=== PATIENT | male | born 1965 | race Two or more races ===

== ENCOUNTER 2024-07-16 14:44 | Emergency (ER) | payer SELFPAY ==
[2024-07-16 14:48] VITALS: BP 158/93; PULSE 95; TEMP 36.7; O2SAT 96; BMI 24.3
--- NOTE | 2024-07-16 14:58 | ED.GENADUL1 ---
HPI HPI - General Adult General Chief complaint: Extremity Injury, Lower Stated complaint: PAIN IN R LEG Time Seen by Provider: 07/16/24 14:55 Source: patient Mode of arrival: walk-in Limitations: no limitations History of Present Illness HPI narrative: 58-year-old male presents for pain in his right ischial tuberosity. It has been hurting for 2 weeks since he fell and landed on this area. No other injury was sustained. He points only to the ischial tuberosity to indicate the area of pain. There is no pain at the greater trochanter area or on the left side. Related Data Previous Rx's ?Medication ?Instructions ?Recorded acetaminophen 300 mg-codeine 30 mg 1 tab PO Q6H PRN pain 5 days #20 07/16/24 tablet tabs ibuprofen 800 mg tablet 800 mg PO Q8H PRN pain #20 tabs 07/16/24 Allergies Allergy/AdvReac Type Severity Reaction Status Date / Time No Known Drug Allergies Allergy Verified 07/16/24 14:48 Opioid HPI Opioid Management Most Recent Opioid Data: No Data to Display Review of Systems ROS Narrative A ten point review of systems is negative except as noted above. PFSH PFSH Social History Little interest or pleasure in doing things: not at all Feeling down, depressed, or hopeless: not at all Exam Narrative Exam Narrative: Nurses note and vital signs reviewed and patient is not hypoxic. General: The patient appears well and in no apparent distress. Patient is resting comfortably on cart. Skin: Warm, dry, no pallor noted. There is no rash noted. Head: Normocephalic, atraumatic Eye: Normal conjunctiva, no drainage Ears, Nose, Mouth, and Throat: oral mucosa is moist. Nares patent. Cardiovascular: Regular Rate and Rhythm Respiratory: Patient is in no distress, no accessory muscle use, lungs are clear to auscultation, no wheezing, rales or rhonchi Back: non-tender GI: Soft and nontender Musculoskeletal: The right hip and buttock area are examined. No erythema bruise or abrasion. His hip has full range of motion and he has no tenderness over the greater trochanter. He has palpable tenderness over the right ischial tuberosity only. Neurological: A&O, normal speech Psychiatric: Cooperative Constitutional Vital Signs, click to edit/add: Last Vital Signs Temp 98.1 F 07/16/24 14:48 Pulse 95 H 07/16/24 14:48 Resp 20 07/16/24 14:48 BP 158/93 H 07/16/24 14:48 Pulse Ox 96 07/16/24 14:48 Course Vital Signs Vital signs: Vital Signs Temperature 98.1 F 07/16/24 14:48 Pulse Rate 95 H 07/16/24 14:48 Respiratory Rate 20 07/16/24 14:48 Blood Pressure 158/93 H 07/16/24 14:48 Pulse Oximetry 96 07/16/24 14:48 Temperature 98.1 F 07/16/24 14:48 Pulse Rate 95 H 07/16/24 14:48 Respiratory Rate 20 07/16/24 14:48 Blood Pressure 158/93 H 07/16/24 14:48 Pulse Oximetry 96 07/16/24 14:48 Medical Decision Making MDM Narrative Medical decision making narrative: X-rays negative. My clinical impression is that he has a contusion. Treatment diagnosis and follow-up were discussed with the patient. Differential Diagnosis Differential Diagnosis: Contusion, for actual Imaging Data Pelvis x-ray: Radiologist's impression: No acute bony process Discharge Plan Discharge Chief Complaint: Extremity Injury, Lower Clinical Impression: Contusion of buttock Patient Disposition: Home, Self-Care Time of Disposition Decision: 15:52 Condition: Good Mode of Transportation: Private Vehicle Prescriptions / Home Meds: New acetaminophen-codeine 300-30 mg tablet 1 tab PO Q6H PRN (Reason: pain) 5 Days Qty: 20 0RF ibuprofen 800 mg tablet 800 mg PO Q8H PRN (Reason: pain) Qty: 20 0RF Print Language: Greek Instructions: Contusion in Adults (ED) Referrals: Physician,Non-Staff, MD [Primary Care Provider] - 1 week
--- NOTE | 2024-07-18 12:51 | PC.NURSE ---
[employer] spoke to Daughter on phone. Daughter states she has not been able to fill the scripts for her dad. daughter states that the pharmacy told her the birthdate was wrong. RN informed daughter that the script was sent electronically and would have the birthdate of 1965. daughter confirms that this is the correct birthday. RN did speak to Dr. Hung about the issue with the prescriptions and he is not willing to resend the prescriptions to the pharmacy. RN informed daughter that if her dad needs to be seen again to please come back to the ER for evaluation. RN also spoke to daughter about OTC meds that can be used for pain and using ice 20min on and 20min off through out the day. Daughter verbalized understanding.
== END 2024-07-16 16:00 | disposition home or self-care (01) ==
PROVIDERS: Emergency Provider Emergency Medicine
DX: S30.0XXA Contusion of lower back and pelvis, initial encounter (principal); W19.XXXA Unspecified fall, initial encounter
CPT/HCPCS: 72170; 99283